=== PATIENT | female | born 1965 ===

== ENCOUNTER 2017-08-21 10:17 | Day surgery (SDC) | payer OTHER ==
[2017-08-21] VITALS (10 sets, daily range): BP systolic 115–149; BP diastolic 65–78
[~2017-08-21] VITALS: Ht 157.5 cm; Wt 68.1 kg
[~2017-08-21 10:17] MED LIST: GLIMEPIRIDE1 MG ORAL; LISINOPRIL10 MG ORAL; METFORMIN HCL1000 M1 ORAL; SYNTHROID75 MCG ORAL; ceFAZolin 1gm in D5W 55ml IVP ONE; celeBREX 200mg Cap **SURGERY PATIENTS ONLY ORAL ONE; oxyCONTIN 20mg tab ORAL ONE
[2017-08-21] MEDS ORDERED: LR 1000ml ONE (10:18)
[2017-08-21] MEDS ORDERED: NS Irrig 4000ml IRRIG ONE ×2 (10:18→13:28)
[2017-08-21] MEDS ORDERED: NS Irrig 1000ml ONE (10:18)
[2017-08-21] MEDS ORDERED: NS Irrig 2000ml IRRIG ONE (10:18)
[2017-08-21] MEDS ORDERED: SIMVASTATIN20 MG ORAL (10:55)
[2017-08-21] MEDS ORDERED: celeBREX 200mg Cap **SURGERY PATIENTS ONLY ORAL ONE (11:16)
[2017-08-21] MEDS ORDERED: oxyCONTIN 20mg tab ORAL ONE (11:16)
[2017-08-21] MEDS ORDERED: Bupivacaine 0.25% Inj 30ml INJ ONE ×2 (11:58→12:17)
[2017-08-21] MEDS ORDERED: Zemuron 50mg/5ml Inj IV ONE (11:58)
--- NOTE | 2017-08-21 12:06 | Pre-Procedure Note/Attestation ---
Pre-Procedure Note/Attestation Complete Prior to Procedure Planned Procedure: left Procedure Narrative: shoulder arthroscopy, sad Indications for Procedure Pre-Operative Diagnosis: left shoulder internal derangement, impingement Attestation I attest that I discussed the nature of the procedure; its benefits; risks and complications; and alternatives (and the risks and benefits of such alternatives ), prior to the procedure, with the patient (or the patient's legal door to door sales representative). I attest that, if there was a reasonable possibility of needing a blood transfusion, the patient (or the patient's legal door to door sales representative) was given the [facility] standardized written summary, pursuant to the Paulo Reyno Blood Safety Act ([place] Health and Safety Code # 1645, as amended). I attest that I re-evaluated the patient just prior to the surgery and that there has been no change in the patient's H&P, except as documented below: Victoriano Tate MD August 21, 2017 12:06
[2017-08-21] MEDS ORDERED: fentaNYL 100 mcg/2 mL IV ONE (12:07)
--- NOTE | 2017-08-21 12:07 | Operative Note - PDOC ---
Operative Note Operative Note Pre-op Diagnosis: left shoulder internal derangement, impingement Procedure: see op report Post-op Diagnosis: same as pre-op plus Operative Findings: consistent w/pre-op dx studies Anesthesia: regional Specimen: none Complications: none Condition: stable Estimated Blood Loss: none Implant(s) used?: No Victoriano Tate MD August 21, 2017 12:07
[2017-08-21] MEDS ORDERED: Propofol 200mg/20ml IV ONE (12:08)
[2017-08-21] MEDS ORDERED: Midazolam 2mg/2ml Inj ONE (12:08)
[2017-08-21] MEDS ORDERED: Lidocaine 1% MPF 10mg/ml 5ml ONE (12:08)
[2017-08-21] MEDS ORDERED: Ropivacaine 5mg/ml Vial 30ml INJ ONE (12:09)
[2017-08-21] MEDS ORDERED: Tylenol #3 tab (300mg/30mg) ORAL PRN (12:15)
[2017-08-21] MEDS ORDERED: Norco 5mg/325mg tab ORAL PRN (12:15)
[2017-08-21] MEDS ORDERED: D5 1/2NS 1,000 ML IV SCH (12:15)
[2017-08-21] MEDS ORDERED: Neostigmine 1mg/ml 10ml Inj ONE (12:17)
[2017-08-21] MEDS ORDERED: Metoclopramide 10mg/2ml Inj ONE (13:10)
[2017-08-21] MEDS ORDERED: ePHEDrine 50mg/ml Inj ONE (13:13)
[2017-08-21] MEDS ORDERED: Metoclopramide 10mg/2ml Inj IVP PRN (13:45)
[2017-08-21] MEDS ORDERED: Acetaminophen (Non formulary) 100 ML IV SCH (13:45)
[2017-08-21] MEDS ORDERED: fentaNYL 100 mcg/2 mL IV PRN (13:45)
[2017-08-21] MEDS ORDERED: Glycopyrrolate 0.2mg/ml 1ml Vial ONE (13:45)
--- NOTE | 2017-08-21 14:23 | Anethesia Preoperative Eval ---
Anesthesia Pre-op PMH/ROS General Date of Evaluation: August 21, 2017 Time of Evaluation: 12:45 Anesthesiologist: wisam ASA Score: ASA 2 Mallampati Score Class I : Soft palate, uvula, fauces, pillars visible Class II: Soft palate, uvula, fauces visible Class III: Soft palate, base of uvula visible Class IV: Only hard plate visible Mallampati Classification: Class II Surgeon: preethi Diagnosis: shoulder pain Surgical Procedure: left shoulder arthroscopy Anesthesia History: none Allergies: Coded Allergies: No Known Allergies (Unverified , 08/20/17) Medications: see eMAR Past Medical History Cardiovascular: Reports: HTN; Denies: CAD, [place], valve dz, arrhythmia, other Pulmonary: Denies: asthma, COPD, JENIFFER, other Gastrointestinal/Genitourinary: Denies: GERD, CRI, ESRD, other Neurologic/Psychiatric: Denies: dementia, CVA, depression/anxiety, TIA, other Endocrine: Reports: DM; Denies: hypothyroidism, steroids, other HEENT: Denies: cataract (L), cataract (R), glaucoma, AKIACHAK (L), AKIACHAK (R), other Hematology/Immune: Denies: anemia, DVT, bleeding disorder, other Other: obesity Anesthesia Pre-op Phys. Exam Physician Exam Last Vital Signs Date Time Temp Pulse Resp B/P (MAP) Pulse Ox O2 Delivery O2 Flow Rate FiO2 08/21/17 10:51 97.4 77 18 136/76 99 Room Air 97.4 Constitutional: NAD Neurologic: CN 2-12 intact Cardiovascular: RRR Respiratory: CTA Gastrointestinal: S/NT/ND Airway Exam Mallampati Classification 2 Mallampati Score: Class II MO: full ROM: full Dentures: no upper, no lower Anesthesia Pre-op A/P Studies Pre-op Studies: EKG - sr Risk Assessment & Plan Assessment: denies Plan: general and ISB Status Change Before Surgery: No Pre-Antibiotics Drug: ancef Given Within 1 Hr of Incision: Yes Time Given: 13:00 LAINA OLMEDO CRNA August 21, 2017 14:23
--- NOTE | 2017-08-21 14:26 | Immediate Post-Op Evaluation ---
Immediate Post-Op Evalulation Immediate Post-Op Evalulation Procedure: left shoulder arthroscopy with SAD Date of Evaluation: August 21, 2017 Time of Evaluation: 14:15 IV Fluids: 750 Blood Pressure Systolic: 115 Blood Pressure Diastolic: 65 Pulse Rate: 78 Respiratory Rate: 14 O2 Sat by Pulse Oximetry: 100 Temperature (Fahrenheit): 97.6 Nausea: No Vomiting: No Complications none Patient Status: awake, reacts, patent Hydration Status: adequate Drug: ancf Given Within 1 Hr of Incision: Yes Time Given: 13:00 LAINA OLMEDO CRNA August 21, 2017 14:26
--- NOTE | 2017-08-21 21:01 | Operative Note - Dictated ---
DATE OF OPERATION: 08/21/2017 PREOPERATIVE DIAGNOSES: 1. Left shoulder impingement syndrome. 2. Left shoulder partial articular subscapularis and supraspinatus rotator cuff tear. PROCEDURE: 1. Left shoulder diagnostic arthroscopy. 2. Left shoulder debridement/repair of partial subscapularis and supraspinatus rotator cuff tear. 3. Subacromial decompression and bursectomy. SURGEON: Victoriano Tate M.D. ANESTHESIA: Interscalene with general. INDICATION FOR PROCEDURE: The patient is a pleasant female, who has had progressive left shoulder pain. She failed conservative treatment and elected to undergo left shoulder diagnostic arthroscopy with possible subacromial decompression and bursectomy. Risks, limitations, expectations, and complications of the procedure were discussed in detail. All questions were addressed. DESCRIPTION OF PROCEDURE: After informed consent was obtained, the patient was brought to the operative room and placed supine under interscalene with general anesthesia. The patient was then carefully placed in the beach-chair position. Left shoulder was prepped and draped in sterile manner. Time-out was performed. Antibiotics were administered. The trocar was then introduced into the glenohumeral joint. No significant chondral damage. The anterior labrum appeared to be intact along with the superior labrum. There was some fraying along the subscapularis insertion on lesser tuberosity adjacent to the biceps tendon area. There was some fraying of partial articular-sided rotator cuff involving the supraspinatus. A shaver was then placed in the rotator interval and debridement of these tears was performed. Once that was done, the camera was repositioned in the subacromial space. There was hypertrophic bursal tissue which was all debrided to better visualize the acromion. Acromioplasty was started from lateral to medial and completed from posterior to anterior. Bursectomy was completed posteriorly. Once that was done, the instruments were removed. Portal sites were closed with 3-0 Monocryl sutures. Steri-Strips and sterile dressing were applied. The patient was awoken and taken to recovery room with stable vital signs. ESTIMATED BLOOD LOSS: None. COMPLICATIONS: None. SPECIMENS: None. IMPLANTS: None. Victoriano Tate M.D. DR: Sancho JOB#: [id number] CC:
== END 2017-08-21 16:00 | disposition home or self-care (01) ==
LOC: SUR 10:17
DX: M75.112 Incomplete rotator cuff tear or rupture of left shoulder, not specified as traumatic (principal); M75.42 Impingement syndrome of left shoulder; I10 Essential (primary) hypertension; E11.9 Type 2 diabetes mellitus without complications; E03.9 Hypothyroidism, unspecified; E78.00 Pure hypercholesterolemia, unspecified; Z90.49 Acquired absence of other specified parts of digestive tract
CPT/HCPCS: 29823; 82962; J0690; J2250; J2405; J2704; J2710; J2765; J2795; J3010; J3490; J7120

== ENCOUNTER → 2018-04-02 | Day surgery (SDC) | payer OTHER ==
[2018-04-02] VITALS (10 sets, daily range): BP systolic 113–167; BP diastolic 46–85
[~2018-04-02] VITALS: Ht 157.5 cm; Wt 69.9 kg
[~2018-04-02] MED LIST changes: +Atropine Sulfate 0.4mg/ml inj IVP PRN; +Bupivacaine w/Epi 0.25% 30ml Vial INJ ONE; +D5 1/2NS 1,000 ML IV SCH; +Dexamethasone 4mg/ml vial ONE; +DiphenhydrAMINE 50mg/ml Inj IVP PRN; +EPINEPHrine 1mg/1ml Amp ONE; +HYDROcodone/Acetamin 7.5/325 tab ORAL PRN; +HYDROmorphone 1mg/ml Carpuject SUBQ PRN; +Hydromorphone 0.5mg/0.5ml inj IVP PRN; +Kenalog-40 1ml Vial ONE; +Ketorolac 30mg Inj IV PRN; +Ketorolac 30mg Inj ONE; +LORazepam Inj 2mg/ml 1ml IV PRN; +LR 1000ml 1,000 ML IVLG SCH; +LR 1000ml ONE; +Lidocaine 1% MPF 10mg/ml 5ml ONE; +Meperidine 50mg/ml Inj(FOR RIGORS ONLY) IVP PRN; +Metoclopramide 10mg/2ml Inj IVP PRN; +Midazolam 2mg/2ml Inj IVP PRN; +NS Irrig 1000ml ONE; +NS Irrig 4000ml IRRIG ONE; +Norco 5mg/325mg tab ORAL PRN; +Propofol 200mg/20ml IV ONE; +Ropivacaine 5mg/ml Vial 30ml INJ ONE; +SIMVASTATIN20 MG ORAL; +Sodium Chloride 10ml vial INJ ONE; +Tylenol #3 tab (300mg/30mg) ORAL PRN; +ceFAZolin 1gm IVPB IVPB ONE; -ceFAZolin 1gm in D5W 55ml IVP ONE; +fentaNYL 100 mcg/2 mL IV ONE; +fentaNYL 100 mcg/2 mL IV PRN; +oxyCODONE HCL/Acetaminophen 5/325mg ORAL PRN
--- NOTE | 2018-04-02 06:45 | Anethesia Preoperative Eval ---
Anesthesia Pre-op PMH/ROS General Date of Evaluation: Apr 02, 2018 Time of Evaluation: 07:31 Anesthesiologist: Sandy ASA Score: ASA 3 Mallampati Score Class I : Soft palate, uvula, fauces, pillars visible Class II: Soft palate, uvula, fauces visible Class III: Soft palate, base of uvula visible Class IV: Only hard plate visible Mallampati Classification: Class II Surgeon: Bebeto Diagnosis: L Shoulder pain Surgical Procedure: L SShoulder Arthroscopy Anesthesia History: none Family History: no anesthesia problems Allergies: Coded Allergies: No Known Allergies (Unverified , 08/20/17) Medications: see eMAR Patient NPO?: Yes Past Medical History Cardiovascular: Reports: HTN, other - HL Endocrine: Reports: DM PSxH Narrative: Cholecystectomy, TL Anesthesia Pre-op Phys. Exam Physician Exam Last Vital Signs Date Time Temp Pulse Resp B/P (MAP) Pulse Ox O2 Delivery O2 Flow Rate FiO2 04/02/18 06:10 98.4 61 20 119/60 98 Room Air Constitutional: NAD Neurologic: CN 2-12 intact Cardiovascular: RRR Respiratory: CTA Gastrointestinal: S/NT/ND Airway Exam Mallampati Score: Class II MO: full ROM: full Teeth: missing, intact Anesthesia Pre-op A/P Labs Urine Test Test 04/02/18 05:40 Urine HCG, Qualitative Negative (NEGATIVE) Risk Assessment & Plan Assessment: ASA 3 Plan: GA, Supraclavicular Block, SED Status Change Before Surgery: No Pre-Antibiotics Dru Gram Ancef IV Given Within 1 Hr of Incision: Yes Time Given: 07:56 Kel Delgado MD Apr 02, 2018 06:45
--- NOTE | 2018-04-02 07:07 | Immediate Post-Op Evaluation ---
Immediate Post-Op Evalulation Immediate Post-Op Evalulation Procedure: L Shoulder Arthroscopy Date of Evaluation: Apr 02, 2018 Time of Evaluation: 09:35 IV Fluids: 600 LR Blood Products: 0 Estimated Blood Loss: 10 Urinary Output: 0 Blood Pressure Systolic: 115 Blood Pressure Diastolic: 46 Pulse Rate: 56 Respiratory Rate: 16 O2 Sat by Pulse Oximetry: 99 Temperature (Fahrenheit): 97.6 Pain Score (1-10): 1 Nausea: No Vomiting: No Complications 0 Patient Status: awake, reacts, patent, none Hydration Status: adequate Dru Gram Ancef IV Given Within 1 Hr of Incision: Yes Time Given: 07:56 Kel Delgado MD Apr 02, 2018 07:07
--- NOTE | 2018-04-02 07:07 | 48 Hour Post Anesthesia Eval ---
Post Anesthesia Evaluation Procedure: L Shoulder Arthroscopy Date of Evaluation: Apr 02, 2018 Time of Evaluation: 11:42 Blood Pressure Systolic: 121 0: 56 Pulse Rate: 61 Respiratory Rate: 18 Temperature (Fahrenheit): 98.2 O2 Sat by Pulse Oximetry: 99 Airway: patent Nausea: No Vomiting: No Pain Intensity: 1 Hydration Status: adequate Cardiopulmonary Status: Stable Mental Status/LOC: patient returned to baseline Follow-up Care/Observations: 0 Post-Anesthesia Complications: 0 Follow-up care needed: ready to discharge Kel Delgado MD Apr 02, 2018 07:07
--- NOTE | 2018-04-02 07:49 | Pre-Procedure Note/Attestation ---
Pre-Procedure Note/Attestation Complete Prior to Procedure Planned Procedure: left Procedure Narrative: shoulder arthroscopy, sad, possible rc repair Indications for Procedure Pre-Operative Diagnosis: left shoulder impingement, rct Attestation I attest that I discussed the nature of the procedure; its benefits; risks and complications; and alternatives (and the risks and benefits of such alternatives ), prior to the procedure, with the patient (or the patient's legal procurement representative). I attest that, if there was a reasonable possibility of needing a blood transfusion, the patient (or the patient's legal procurement representative) was given the [facility] standardized written summary, pursuant to the Paulo La Nena Blood Safety Act ([place] Health and Safety Code # 1645, as amended). I attest that I re-evaluated the patient just prior to the surgery and that there has been no change in the patient's H&P, except as documented below: Victoriano Tate MD Apr 02, 2018 07:49
--- NOTE | 2018-04-02 07:49 | Operative Note - PDOC ---
Operative Note Operative Note Pre-op Diagnosis: left shoulder impingement, rct Procedure: see op report Post-op Diagnosis: same as pre-op plus Operative Findings: consistent w/pre-op dx studies Anesthesia: MAC Specimen: none Complications: none Condition: stable Estimated Blood Loss: none Implant(s) used?: No Victoriano Tate MD Apr 02, 2018 07:49
--- NOTE | 2018-04-03 03:15 | Operative Note - Dictated ---
DATE OF OPERATION: 04/02/2018 PREOPERATIVE DIAGNOSES: 1. Status post left shoulder arthroscopy with decompression with secondary adhesive capsulitis. 2. Diabetes. POSTOPERATIVE DIAGNOSES: 1. Status post left shoulder arthroscopy with decompression with secondary adhesive capsulitis. 2. Diabetes. PROCEDURES: 1. Left shoulder arthroscopic pancapsular release. 2. Revision bursectomy and lysis of adhesion. 3. Manipulation under anesthesia. SURGEON: Victoriano Tate M.D. DESCRIPTION OF PROCEDURE: After informed consent was obtained, the patient was brought to the operating room. The patient was placed under interscalene with general anesthesia. Ancef was administered. Time-out was performed. The patient was placed in beach-chair position. Left shoulder was prepped and draped in a sterile manner. Examination under anesthesia was performed. Forward elevation is 90, abduction 60, and extension was 45. There was significant adhesive capsulitis. Therefore, a gentle manipulation under anesthesia was performed. First in flexion, extension, and then abduction, external rotation, and internal rotation. Once that was completed, the posterior portal was incised. Trocar was introduced into shoulder joint. There was significant erythema along the rotator interval biceps tendon, the undersurface of acromion, and labrum consistent with significant adhesive capsulitis. Rotator interval was then released using direct cautery, care was taken to avoid the subscapularis, labrum, and biceps tendon. Once that was completed, the camera was placed in the medial working portal and the release of the posterior capsule was performed. Care was taken particularly inferior aspect to protect axillary nerve. Once that was completed, the camera was placed in the subacromial space, there was significant lysis of the adhesions in the subdeltoid bursa. Complete bursectomy was again performed. Acromial was identified. No acromioplasty was required. Once the bursectomy was completed, instruments were removed. The intra-articular injection containing 0.25% Marcaine with epinephrine, 40 mg of Kenalog, and Toradol was injected. The patient was awoken and taken to recovery room with stable vital signs. ESTIMATED BLOOD LOSS: None. COMPLICATIONS: None. SPECIMENS: None. IMPLANTS: None. Victoriano Tate M.D. DR: CLAUDINE JOB#: [id number] CC: SAM
== END | disposition home or self-care (01) ==
LOC: SUR 05:27
DX: M75.02 Adhesive capsulitis of left shoulder (principal); E11.9 Type 2 diabetes mellitus without complications; I10 Essential (primary) hypertension
CPT/HCPCS: 29825; 81025; 82962; J0171; J0690; J1100; J1885; J2250; J2405; J2704; J2795; J3010; J3301; 94003; 94150